=== PATIENT | male | born 1960 | race African-American/Black ===

== ENCOUNTER 2017-08-18 11:46 | Inpatient (IN) | payer OTHER ==
[2017-08-18 12:09] VITALS: BMI 34.7
--- NOTE | 2017-08-18 13:48 | HP ---
CIWA Score - CIWA Score Nausea/Vomitin-Mild Nausea/No Vomiting Muscle Tremors: 4-Moderate,w/Arms Extend Anxiety: 4-Mod. Anxious/Guarded Agitation: 4-Moderately Restless Paroxysmal Sweats: 1-Minimal Palms Moist Orientation: 1-Uncertain about Date Tacttile Disturbances: 1-Very Mild Itch/Numbness Auditory Disturbances: 0-None Visual Disturbances: 0-None Headache: 2-Mild CIWA-Ar Total Score: 18 Admission ROS S - HPI Chief Complaint: withdrawal sx Allergies/Adverse Reactions: Allergies Allergy/AdvReac Type Severity Reaction Status Date / Time No Known Allergies Allergy Verified 12/09/14 17:36 History of Present Illness: 57 years old male with long history of alcohol nicotine dependence has positive ppd ANXIETY IS ADMITTED TO DETOX Exam Limitations: No Limitations - Ebola screening Have you traveled outside of the country in the last 21 days: No Have you had contact with anyone from an Ebola affected area: No Have you been sick,other than usual withdrawal symptoms: No Do you have a fever: No - Review of Systems Constitutional: Changes in sleep, Weight Stable EENT: reports: Blurred Vision (EYE GLASSES), Hearing Loss (LEFT EAR SINCE ) Respiratory: reports: No Symptoms reported Cardiac: reports: No Symptoms Reported GI: reports: Diarrhea, Nausea, Poor Fluid Intake, Indigestion, Abdominal cramping : reports: No Symptoms Reported Musculoskeletal: reports: Joint Pain (LEFT KNEE 2017) Integumentary: reports: No Symptoms Reported Neuro: reports: Tremors Endocrine: reports: No Symptoms Reported Hematology: reports: No Symptoms Reported Psychiatric: reports: Judgement Intact, Anxious Other Systems: Reviewed and Negative Patient History - Patient Medical History Hx Anemia: No Hx Asthma: No Hx Chronic Obstructive Pulmonary Disease (COPD): No Hx Cancer: No Hx Cardiac Disorders: No Hx Congestive Heart Failure: No Hx Hypertension: No Hx Hypercholesterolemia: No Hx Pacemaker: No HX Cerebrovascular Accident: No Hx Seizures: No Hx Dementia: No Hx Diabetes: No Hx Gastrointestinal Disorders: Yes (acid reflux) Hx Liver Disease: No Hx Genitourinary Disorders: No Hx Sexually Transmitted Disorders: No Hx Renal Disease (ESRD): No Hx Thyroid Disease: No Hx Human Immunodeficiency Virus (HIV): No (NEGATIVE HX) Hx Hepatitis C: No Hx Depression: Yes Hx Suicide Attempt: No Hx Bipolar Disorder: No Hx Schizophrenia: No - Patient Surgical History Past Surgical History: Yes Hx Neurologic Surgery: No Hx Cataract Extraction: No Hx Cardiac Surgery: No Hx Lung Surgery: No Hx Breast Surgery: No Hx Breast Biopsy: No Hx Abdominal Surgery: Yes (RIGHT INGUINAL HERNIA REPAIR AT 24 YRS OLD) Hx Appendectomy: No Hx Cholecystectomy: Yes ([facility] Hx Genitourinary Surgery: No Hx Orthopedic Surgery: No Other Surgical History: MASTOIDECTOMY LEFT AT AGE 11,AND 34 WITH 50% HEARING LOSS Anesthesia Reaction: No - PPD History Previous Implant?: Yes Documented Results: Positive w/o proof Implanted On Prior [facility] Admission?: No PPD to be Administered?: No - Smoking Cessation Smoking history: Current every day smoker Have you smoked in the past 12 months: Yes Aproximately how many cigarettes per day: 10 Cigars Per Day: 0 Hx Chewing Tobacco Use: No Initiated information on smoking cessation: Yes 'Breaking Loose' booklet given: 08/18/17 - Substance & Tx. History Hx Alcohol Use: Yes Hx Substance Use: Yes Substance Use Type: Alcohol, Cocaine Hx Substance Use Treatment: Yes (2012) - Substances Abused Alcohol Route: Oral Frequency: Daily Amount used: vodka pint Age of first use: 19 Date of Last Use: 08/17/17 Cocaine Route: Smoking Frequency: Daily Amount used: 30$ Age of first use: 19 Date of Last Use: 08/18/17 Family Disease History - Family Disease History Family Disease History: Heart Disease: Father (DC-), Respiratory: Mother (ASTHMA/), Other: Mother, Brother (NO BROTHER) Admission Physical Exam [facility] - Vital Signs Vital Signs: Vital Signs - 24 hr 08/18/17 12:03 Temperature 98.6 F Pulse Rate 86 Respiratory 18 Rate Blood Pressure 149/86 - Physical General Appearance: Yes: Appropriately Dressed, Moderate Distress, Tremorous, Irritable, Sweating, Anxious HEENTM: Yes: Hearing grossly Normal, Normal ENT Inspection, Normocephalic, Normal Voice Respiratory: Yes: Chest Non-Tender, Lungs Clear, Normal Breath Sounds, No Respiratory Distress, No Accessory Muscle Use Neck: Yes: Supple, Trachea in good position Breast: Yes: Breasts Symetrical Cardiology: Yes: Regular Rhythm, Regular Rate, S1, S2 Abdominal: Yes: Non Tender, Soft, Increased Bowel Sounds Genitourinary: Yes: Within Normal Limits Back: Yes: Normal Inspection Musculoskeletal: Yes: full range of Motion, Gait Steady, Muscle Pain (LEFT KNEE) Extremities: Yes: Non-Tender, Tremors, Swelling (LEFT KNEE = CHRONIC) Neurological: Yes: Alert, Motor Strength 5/5 (CANE), Normal Response, Depressed Affect Integumentary: Yes: Warm Lymphatic: Yes: Within Normal Limits - Diagnostic (1) Alcohol dependence with uncomplicated withdrawal Current Visit: Yes Status: Acute (2) GERD (gastroesophageal reflux disease) Current Visit: Yes Status: Chronic Qualifiers: Esophagitis presence: without esophagitis Qualified Code(s): K21.9 - Gastro -esophageal reflux disease without esophagitis (3) HEARING LOSS LEFT EAR S/P MASTOIDECTOMY Current Visit: Yes Status: Chronic (4) Nicotine dependence Current Visit: Yes Status: Acute Cleared for Admission S - Detox or Rehab [facility] Level of Care: Medically Managed Detox Regimen/Protocol: Librium S Breath Alcohol Content Breath Alcohol Content: 0 Urine Drug Screen - Results Drug Screen Negative: No Urine Drug Screen Results: AIME-Cocaine
[2017-08-18] MEDS ORDERED: NICOTINE POLACRILEX 2 MG GUM BC PRN (14:00)
[2017-08-18] MEDS ORDERED: P-EPHED 60MG/TRIPROLIDI 2.5MG TABLET PO PRN (14:00)
[2017-08-18] MEDS ORDERED: guaiFENesin/D-METHORPHAN HB 10 ML UNIT-DOSE CUPS PO PRN (14:00)
[2017-08-18] MEDS ORDERED: MAGNESIUM CITRATE 300 ML BOTTLE PO PRN (14:00)
[2017-08-18] MEDS ORDERED: MAG HYDROX/AL HYDROX/SIMETH 30 ML UNIT-DOSE CUP PO PRN (14:00)
[2017-08-18] MEDS ORDERED: chlordiazePOXIDE HCL 25 MG CAPSULE PO PRN (14:00)
[2017-08-18] MEDS ORDERED: LOPERAMIDE HCL 2 MG CAPSULE PO PRN (14:00)
[2017-08-18] MEDS ORDERED: MAGNESIUM HYDROX 2400MG/30ML ORAL SUSPENSION 30 ML CUP PO PRN (14:00)
[2017-08-18] MEDS: chlordiazePOXIDE HCL 25 MG CAPSULE PO SCH ×2 (18:39→22:11)
[2017-08-18] MEDS: RANITIDINE HCL 150 MG TABLET (FP) PO SCH (22:11)
[2017-08-18] MEDS: THIAMINE HCL 100 MG TABLET (FP) PO SCH (22:11)
[2017-08-18 23:08] LABS: URINE APPEARANCE CLEAR; URINE BILIRUBIN NEGATIVE (NEGATIVE); URINE BLOOD NEGATIVE (NEGATIVE); URINE COLOR YELLOW; URINE GLUCOSE (UA) NEGATIVE (NEGATIVE); URINE KETONE NEGATIVE (NEGATIVE); URINE LEUK ESTERASE NEGATIVE (NEGATIVE); URINE NITRITE NEGATIVE (NEGATIVE); URINE PROTEIN NEGATIVE (NEGATIVE)
[2017-08-19] MEDS: chlordiazePOXIDE HCL 25 MG CAPSULE PO SCH ×4 (06:19→22:36)
[2017-08-19 09:57] LABS: HEMOGLOBIN 14.6 GM/dL (11.7-16.9); MCHC 31.7 g/dl (32.0-35.9); MEAN CELL VOLUME 94.4 fl (80-96); PLATELET COUNT 252 K/MM3 (134-434); RBC 4.87 M/mm3 (4.00-5.60); RDW 13.7 % (11.9-15.9); WHITE BLOOD COUNT 13.5 K/mm3 (4.0-10.0)
[2017-08-19] MEDS: PRENATAL VITAMINS W/ FOLIC ACID TABLET (FP) PO SCH (10:15)
[2017-08-19] MEDS: RANITIDINE HCL 150 MG TABLET (FP) PO SCH ×2 (10:15→22:36)
[2017-08-19] MEDS: NICOTINE 14 MG/24 HOURS TOPICAL PATCH TD SCH (10:15)
[2017-08-19 10:30] LABS: CHLORIDE 107 mmol/L (98-107); POTASSIUM 4.1 mmol/L (3.5-5.1); SGOT/AST 15 U/L (15-37); SODIUM 143 mmol/L (136-145)
[2017-08-19 10:44] LABS: ALBUMIN 3.9 g/dl (3.4-5.0); ALK PHOS 118 U/L (45-117); ANION GAP 7 (8-16); BILIRUBIN,TOTAL 0.4 mg/dL (0.2-1.0); BLOOD UREA NITROGEN 25 mg/dL (7-18); CALCIUM 8.8 mg/dL (8.5-10.1); CO2 29 mmol/L (21-32); CREATININE 1.1 mg/dL (0.7-1.3); GLUCOSE,RANDOM 113 mg/dL (74-106); SGPT/ALT 28 U/L (12-78); TOT PROT 7.4 g/dl (6.4-8.2)
[2017-08-19] MEDS ORDERED: SIMETHICONE 80 MG TAB.CHEW (FP) PO PRN (11:51)
--- NOTE | 2017-08-19 11:58 | PN ---
S CIWA - CIWA Score Nausea/Vomitin Muscle Tremors: 2 Anxiety: 4-Mod. Anxious/Guarded Agitation: 2 Paroxysmal Sweats: 3 Orientation: 2-Disoriented Date<2 days Tacttile Disturbances: 2-Mild Itch/Numbness/Burn Auditory Disturbances: 0-None Visual Disturbances: 0-None Headache: 0-None Present CIWA-Ar Total Score: 18 [facility] Progress Note (SOAP) Subjective: Stomach Cramping, Sweating, Nausea, Anxious. Objective: PT. A & O X 2 (UNCERTAIN ABOUT CURRENT DAY/ DATE). PT. OBSERVED AMBULATING ON UNIT. NO ACUTE DISTRESS. PT. DENIES CHEST PAIN, SOB, AND DIZZINESS. 08/19/17 11:55 Vital Signs Temperature 96.5 F L 08/19/17 09:54 Pulse Rate 78 08/19/17 09:54 Respiratory Rate 20 08/19/17 09:54 Blood Pressure 145/80 08/19/17 09:54 O2 Sat by Pulse Oximetry (%) Laboratory Tests 08/18/17 08/19/17 08/19/17 22:50 05:45 05:45 WBC 13.5 H D RBC 4.87 Hgb 14.6 Hct 46.0 MCV 94.4 MCH 30.0 MCHC 31.7 L RDW 13.7 Plt Count 252 D MPV 10.0 Sodium 143 Potassium 4.1 Chloride 107 Carbon Dioxide 29 D Anion Gap 7 L BUN 25 H D Creatinine 1.1 Creat Clearance w eGFR > 60 Random Glucose 113 H Calcium 8.8 Total Bilirubin 0.4 D AST 15 ALT 28 Alkaline Phosphatase 118 H D Total Protein 7.4 Albumin 3.9 Urine Color Yellow Urine Appearance Clear Urine pH 5.0 Ur Specific [place] 1.025 Urine Protein Negative Urine Glucose (UA) Negative Urine Ketones Negative Urine Blood Negative Urine Nitrite Negative Urine Bilirubin Negative Urine Urobilinogen 2.0 Ur Leukocyte Esterase Negative LABS NOTED. PATIENT DENIES ANY HISTORY OF KNOWN CARDIAC DISEASE INCLUDING ECG ABNORMALITY. RPR RESULT PENDING. 08/19/17 11:56 Assessment: 08/19/17 11:56 WITHDRAWAL SYMPTOMS. Plan: CONTINUE DETOX.
--- NOTE | 2017-08-19 12:55 | CONSULT ---
[facility] Psychiatric Consult - Data Date of interview: 08/19/17 Admission source: [facility] Identifying data: Taken to office for the psychiatric interview.Patient,politely ,declines to be evaluated." I told them that I do not have any issue to discuss with psychiatrists.Thank you." Mr Whalen left for his room.
[2017-08-19] MEDS: METHYL SALICYLATE/MENTHOL OINT 30 GM TUBE TP SCH ×2 (12:59→22:37)
--- NOTE | 2017-08-19 13:55 | EKG ---
Test Reason : Blood Pressure : / mmHG Vent. Rate : 087 BPM Atrial Rate : 087 BPM P-R Int : 168 ms QRS Dur : 092 ms QT Int : 400 ms P-R-T Axes : 065 055 055 degrees QTc Int : 481 ms NORMAL SINUS RHYTHM PROLONGED QT ABNORMAL ECG WHEN COMPARED WITH ECG OF 18-AUG-2017 18:53, NO SIGNIFICANT CHANGE WAS FOUND Confirmed by MD Anju, Paul ([id number]) on 08/19/2017 1:55:00 PM Referred By: Confirmed By:Paul Rene MD
--- NOTE | 2017-08-19 13:59 | EKG ---
Test Reason : Blood Pressure : / mmHG Vent. Rate : 084 BPM Atrial Rate : 084 BPM P-R Int : 168 ms QRS Dur : 096 ms QT Int : 414 ms P-R-T Axes : 070 062 059 degrees QTc Int : 489 ms NORMAL SINUS RHYTHM INCOMPLETE RIGHT BUNDLE BRANCH BLOCK PROLONGED QT ABNORMAL ECG NO PREVIOUS ECGS AVAILABLE Confirmed by MD Rene Edward ([id number]) on 08/19/2017 1:58:48 PM Referred By: Confirmed By:Paul Rene MD
[2017-08-19] MEDS: ACETAMINOPHEN 325 MG TABLET (FP) PO PRN (17:16)
[2017-08-19] MEDS: THIAMINE HCL 100 MG TABLET (FP) PO SCH (22:36)
[2017-08-20] MEDS: chlordiazePOXIDE HCL 25 MG CAPSULE PO SCH ×2 (05:10→10:25)
[2017-08-20] MEDS: MENTHOL/PHENOL 1 EACH UD MM PRN ×2 (05:11→10:28)
[2017-08-20] MEDS ORDERED: ARTIFICIAL TEARS (POLYVINYL ALCOHOL 1.4%) OPTH DROPS OU PRN (10:00)
[2017-08-20] MEDS: PRENATAL VITAMINS W/ FOLIC ACID TABLET (FP) PO SCH (10:26)
[2017-08-20] MEDS: NICOTINE 14 MG/24 HOURS TOPICAL PATCH TD SCH (10:26)
[2017-08-20] MEDS: METHYL SALICYLATE/MENTHOL OINT 30 GM TUBE TP SCH ×2 (10:26→22:42)
[2017-08-20] MEDS: RANITIDINE HCL 150 MG TABLET (FP) PO SCH ×2 (10:27→22:59)
--- NOTE | 2017-08-20 11:32 | PN ---
[facility] CIWA - CIWA Score Nausea/Vomitin-No Nausea/No Vomiting Muscle Tremors: 3 Anxiety: 4-Mod. Anxious/Guarded Agitation: 3 Paroxysmal Sweats: 2 Orientation: 0-Oriented Tacttile Disturbances: 2-Mild Itch/Numbness/Burn Auditory Disturbances: 0-None Visual Disturbances: 2-Mild Sensitivity Headache: 0-None Present CIWA-Ar Total Score: 16 [facility] Progress Note (SOAP) Subjective: Stomach Cramping, Body Aches, Anxious. Objective: PT. A & O X 3, OBSERVED AMBULATING ON UNIT. NO ACUTE DISTRESS. 08/20/17 11:30 Vital Signs Temperature 95.9 F L 08/20/17 09:49 Pulse Rate 81 08/20/17 09:49 Respiratory Rate 18 08/20/17 09:49 Blood Pressure 148/83 08/20/17 09:49 O2 Sat by Pulse Oximetry (%) Laboratory Tests 08/18/17 08/19/17 08/19/17 22:50 05:45 05:45 WBC 13.5 H D RBC 4.87 Hgb 14.6 Hct 46.0 MCV 94.4 MCH 30.0 MCHC 31.7 L RDW 13.7 Plt Count 252 D MPV 10.0 Sodium 143 Potassium 4.1 Chloride 107 Carbon Dioxide 29 D Anion Gap 7 L BUN 25 H D Creatinine 1.1 Creat Clearance w eGFR > 60 Random Glucose 113 H Calcium 8.8 Total Bilirubin 0.4 D AST 15 ALT 28 Alkaline Phosphatase 118 H D Total Protein 7.4 Albumin 3.9 Urine Color Yellow Urine Appearance Clear Urine pH 5.0 Ur Specific [place] 1.025 Urine Protein Negative Urine Glucose (UA) Negative Urine Ketones Negative Urine Blood Negative Urine Nitrite Negative Urine Bilirubin Negative Urine Urobilinogen 2.0 Ur Leukocyte Esterase Negative RPR Titer 08/19/17 05:45 WBC RBC Hgb Hct MCV MCH MCHC RDW Plt Count MPV Sodium Potassium Chloride Carbon Dioxide Anion Gap BUN Creatinine Creat Clearance w eGFR Random Glucose Calcium Total Bilirubin AST ALT Alkaline Phosphatase Total Protein Albumin Urine Color Urine Appearance Urine pH Ur Specific [place] Urine Protein Urine Glucose (UA) Urine Ketones Urine Blood Urine Nitrite Urine Bilirubin Urine Urobilinogen Ur Leukocyte Esterase RPR Titer Nonreactive LABS NOTED. Assessment: 08/20/17 11:30 WITHDRAWAL SYMPTOMS. Plan: CONTINUE DETOX. AMLODIPINE, 5 MG PO DAILY (FIRST DOSE NOW) FOR ELEVATED BP.
[2017-08-20] MEDS: amLODIPine BESYLATE 5 MG TABLET (FP) PO SCH (13:31)
[2017-08-20] MEDS: chlordiazePOXIDE 5 MG CAPSULE PO SCH ×2 (17:20→22:43)
[2017-08-20] MEDS: THIAMINE HCL 100 MG TABLET (FP) PO SCH (22:43)
[2017-08-21] MEDS: chlordiazePOXIDE 5 MG CAPSULE PO SCH ×2 (05:10→11:48)
[2017-08-21] MEDS: MENTHOL/PHENOL 1 EACH UD MM PRN ×2 (05:12→17:23)
--- NOTE | 2017-08-21 11:39 | PN ---
[facility] Progress Note (SOAP) Subjective: Anxious, Body Aches. Objective: PT. A & O X 3, OBSERVED AMBULATING ON UNIT. NO ACUTE DISTRESS. PATIENT DENIES CHEST PAIN. 08/21/17 11:37 Vital Signs Temperature 97.3 F L 08/21/17 09:33 Pulse Rate 89 08/21/17 09:33 Respiratory Rate 18 08/21/17 09:33 Blood Pressure 161/94 08/21/17 09:33 O2 Sat by Pulse Oximetry (%) Laboratory Tests 08/18/17 08/19/17 08/19/17 22:50 05:45 05:45 WBC 13.5 H D RBC 4.87 Hgb 14.6 Hct 46.0 MCV 94.4 MCH 30.0 MCHC 31.7 L RDW 13.7 Plt Count 252 D MPV 10.0 Sodium 143 Potassium 4.1 Chloride 107 Carbon Dioxide 29 D Anion Gap 7 L BUN 25 H D Creatinine 1.1 Creat Clearance w eGFR > 60 Random Glucose 113 H Calcium 8.8 Total Bilirubin 0.4 D AST 15 ALT 28 Alkaline Phosphatase 118 H D Total Protein 7.4 Albumin 3.9 Urine Color Yellow Urine Appearance Clear Urine pH 5.0 Ur Specific [place] 1.025 Urine Protein Negative Urine Glucose (UA) Negative Urine Ketones Negative Urine Blood Negative Urine Nitrite Negative Urine Bilirubin Negative Urine Urobilinogen 2.0 Ur Leukocyte Esterase Negative RPR Titer 08/19/17 05:45 WBC RBC Hgb Hct MCV MCH MCHC RDW Plt Count MPV Sodium Potassium Chloride Carbon Dioxide Anion Gap BUN Creatinine Creat Clearance w eGFR Random Glucose Calcium Total Bilirubin AST ALT Alkaline Phosphatase Total Protein Albumin Urine Color Urine Appearance Urine pH Ur Specific [place] Urine Protein Urine Glucose (UA) Urine Ketones Urine Blood Urine Nitrite Urine Bilirubin Urine Urobilinogen Ur Leukocyte Esterase RPR Titer Nonreactive LABS NOTED. Assessment: 08/21/17 11:37 WITHDRAWAL SYMPTOMS. Plan: CONTINUE DETOX. AMLODIPINE, 5 MG PO (IN ADDITION TO REGULARLY SCHEDULED DAILY 5 MG PO) FOR PERSISTENTLY ELEVATED BP.
[2017-08-21] MEDS: PRENATAL VITAMINS W/ FOLIC ACID TABLET (FP) PO SCH (11:48)
[2017-08-21] MEDS: METHYL SALICYLATE/MENTHOL OINT 30 GM TUBE TP SCH ×2 (11:48→22:48)
[2017-08-21] MEDS: amLODIPine BESYLATE 5 MG TABLET (FP) PO SCH (11:48)
[2017-08-21] MEDS: RANITIDINE HCL 150 MG TABLET (FP) PO SCH ×2 (11:48→22:48)
[2017-08-21] MEDS: NICOTINE 14 MG/24 HOURS TOPICAL PATCH TD SCH (11:48)
[2017-08-21] MEDS ORDERED: amLODIPine BESYLATE 5 MG TABLET (FP) PO ONE (12:00)
[2017-08-21] MEDS: ACETAMINOPHEN 325 MG TABLET (FP) PO PRN (17:21)
[2017-08-21] MEDS: chlordiazePOXIDE HCL 10 MG CAPSULE PO SCH ×2 (17:24→23:50)
[2017-08-21] MEDS: THIAMINE HCL 100 MG TABLET (FP) PO SCH (22:48)
[2017-08-22] MEDS: ACETAMINOPHEN 325 MG TABLET (FP) PO PRN (02:25)
[2017-08-22] MEDS: chlordiazePOXIDE HCL 10 MG CAPSULE PO SCH ×2 (05:49→10:09)
[2017-08-22] MEDS: PRENATAL VITAMINS W/ FOLIC ACID TABLET (FP) PO SCH (10:05)
[2017-08-22] MEDS: amLODIPine BESYLATE 5 MG TABLET (FP) PO SCH (10:05)
[2017-08-22] MEDS: RANITIDINE HCL 150 MG TABLET (FP) PO SCH (10:05)
[2017-08-22] MEDS: METHYL SALICYLATE/MENTHOL OINT 30 GM TUBE TP SCH (10:06)
[2017-08-22] MEDS: NICOTINE 14 MG/24 HOURS TOPICAL PATCH TD SCH (10:06)
--- NOTE | 2017-08-22 12:05 | DS ---
[facility] Detox Discharge Summary Admission Date: 08/18/17 Discharge Date: 08/22/17 - History Present History: Alcohol Dependence Additional Comments: PATIENT GOING TO [facility] ([facility]) FOR AFTERCARE. PATIENT WAS DISCHARGED FROM DETOX UNIT IN STABLE MEDICAL CONDITION. Pertinent Past History: GERD, Nicotine Dependence, Hearing Loss of Left ear, Depression. - Physical Exam Results Vital Signs: Vital Signs Temperature 100.9 F H 08/22/17 06:33 Pulse Rate 78 08/22/17 06:33 Respiratory Rate 18 08/22/17 06:33 Blood Pressure 134/78 08/22/17 06:33 O2 Sat by Pulse Oximetry (%) Pertinent Admission Physical Exam Findings: WITHDRAWAL SYMPTOMS. Laboratory Tests 08/18/17 08/19/17 08/19/17 22:50 05:45 05:45 WBC 13.5 H D RBC 4.87 Hgb 14.6 Hct 46.0 MCV 94.4 MCH 30.0 MCHC 31.7 L RDW 13.7 Plt Count 252 D MPV 10.0 Sodium 143 Potassium 4.1 Chloride 107 Carbon Dioxide 29 D Anion Gap 7 L BUN 25 H D Creatinine 1.1 Creat Clearance w eGFR > 60 Random Glucose 113 H Calcium 8.8 Total Bilirubin 0.4 D AST 15 ALT 28 Alkaline Phosphatase 118 H D Total Protein 7.4 Albumin 3.9 Urine Color Yellow Urine Appearance Clear Urine pH 5.0 Ur Specific [place] 1.025 Urine Protein Negative Urine Glucose (UA) Negative Urine Ketones Negative Urine Blood Negative Urine Nitrite Negative Urine Bilirubin Negative Urine Urobilinogen 2.0 Ur Leukocyte Esterase Negative RPR Titer 08/19/17 05:45 WBC RBC Hgb Hct MCV MCH MCHC RDW Plt Count MPV Sodium Potassium Chloride Carbon Dioxide Anion Gap BUN Creatinine Creat Clearance w eGFR Random Glucose Calcium Total Bilirubin AST ALT Alkaline Phosphatase Total Protein Albumin Urine Color Urine Appearance Urine pH Ur Specific [place] Urine Protein Urine Glucose (UA) Urine Ketones Urine Blood Urine Nitrite Urine Bilirubin Urine Urobilinogen Ur Leukocyte Esterase RPR Titer Nonreactive LABS NOTED. - Treatment Hospital Course: Detox Protocol Followed, Detoxed Safely, Responded well, Discharged Condition Good, Rehab Referral Accepted Patient has Accepted a Rehab Referral to: [facility] ([facility]). - Medication Discharge Medications: Ambulatory Orders Hypromellose 0.5% Opth Soln [Artificial Tears] 2 drop OU QID PRN #0 drops Amlodipine Besylate [Norvasc -] 5 mg PO DAILY 30 Days #30 tablet 08/22/17 - Diagnosis (1) Alcohol dependence with uncomplicated withdrawal Current Visit: Yes Status: Acute (2) Nicotine dependence Current Visit: Yes Status: Acute (3) GERD (gastroesophageal reflux disease) Current Visit: Yes Status: Chronic Qualifiers: Esophagitis presence: without esophagitis Qualified Code(s): K21.9 - Gastro -esophageal reflux disease without esophagitis (4) HEARING LOSS LEFT EAR S/P MASTOIDECTOMY Current Visit: Yes Status: Chronic - AMA Did Patient Leave Against Medical Advice: No
[2017-08-22 17:25] VITALS: BP 129/79; PULSE 83; TEMP 97.1
== END 2017-08-22 17:45 | disposition home or self-care (01) | DRG 774 ==
LOC: YASAS 11:46 → Y3N 17:14
PROVIDERS: ADMIT Internal Medicine; ATTEND Internal Medicine
PROC: HZ2ZZZZ Detoxification Services for Substance Abuse Treatment (ICD-10-PCS; principal; 2017-08-18)
DX: F10.230 Alcohol dependence with withdrawal, uncomplicated (principal); F14.20 Cocaine dependence, uncomplicated; F17.210 Nicotine dependence, cigarettes, uncomplicated; K21.9 Gastro-esophageal reflux disease without esophagitis; H91.8X2 Other specified hearing loss, left ear; Z59.0 Homelessness
CPT/HCPCS: 36415; 71046-TC-FY; 80053; 81003; 85027; 86593; 93005; 93010

== ENCOUNTER 2018-04-17 16:16 | Inpatient (IN) | payer OTHER ==
[2018-04-17 18:37] VITALS: BMI 37.3
--- NOTE | 2018-04-17 20:23 | HP ---
CIWA Score - CIWA Score Nausea/Vomitin Muscle Tremors: 3 Anxiety: 2 Agitation: 3 Paroxysmal Sweats: No Perspiration Orientation: 0-Oriented Tacttile Disturbances: 0-None Auditory Disturbances: 0-None Visual Disturbances: 0-None Headache: 3-Moderate CIWA-Ar Total Score: 14 Admission ROS S - HPI Chief Complaint: Alcohol withdrawal symptoms Allergies/Adverse Reactions: Allergies Allergy/AdvReac Type Severity Reaction Status Date / Time No Known Allergies Allergy Verified 08/18/17 16:43 History of Present Illness: 57 years old female with 37 years old history of alcohol dependence is seeking admission to detox from alcohol. Patient has been in previous detox last at [facility] and reports a year of sobriety. Patient has a medical left ear deafness, acid reflux, right knee tendonitis, depression and hypertension. He denies suicide attempt and suicidal ideation at this time. Exam Limitations: No Limitations - Ebola screening Have you traveled outside of the country in the last 21 days: No Have you had contact with anyone from an Ebola affected area: No Have you been sick,other than usual withdrawal symptoms: No Do you have a fever: No - Review of Systems Constitutional: Loss of Appetite, Weakness EENT: reports: Hearing Loss (left ear), Other (wears prescription glasses) Respiratory: reports: No Symptoms reported Cardiac: reports: No Symptoms Reported GI: reports: Poor Appetite, Poor Fluid Intake, Vomiting, Abdominal cramping : reports: No Symptoms Reported Musculoskeletal: reports: Joint Pain, Joint Swelling (knee) Integumentary: reports: Dryness Neuro: reports: Headache, Tremors Endocrine: reports: No Symptoms Reported Hematology: reports: No Symptoms Reported Psychiatric: reports: Mood/Affect Appropiate, Orientated x3 Other Systems: Reviewed and Negative Patient History - Patient Medical History Hx Anemia: No Hx Asthma: No Hx Chronic Obstructive Pulmonary Disease (COPD): No Hx Cancer: No Hx Cardiac Disorders: No Hx Congestive Heart Failure: No Hx Hypertension: Yes (Not on medication) Hx Hypercholesterolemia: No Hx Pacemaker: No HX Cerebrovascular Accident: No Hx Seizures: No Hx Dementia: No Hx Diabetes: No Hx Gastrointestinal Disorders: Yes (Acid reflux - Not on medication) Hx Liver Disease: No Hx Genitourinary Disorders: No Hx Sexually Transmitted Disorders: No Hx Renal Disease (ESRD): No Hx Thyroid Disease: No Hx Human Immunodeficiency Virus (HIV): No (NEGATIVE 2017) Hx Hepatitis C: No Hx Depression: Yes (Not on medication) Hx Suicide Attempt: No Hx Bipolar Disorder: No Hx Schizophrenia: Yes (Not on medication) Other Medical History: Right knee tendonitis - Not on Medication - Patient Surgical History Past Surgical History: Yes Hx Neurologic Surgery: No Hx Cataract Extraction: No Hx Cardiac Surgery: No Hx Lung Surgery: No Hx Breast Surgery: No Hx Breast Biopsy: No Hx Abdominal Surgery: Yes (RIGHT INGUINAL HERNIA REPAIR AT 24 YRS OLD) Hx Appendectomy: No Hx Cholecystectomy: Yes (LAP CHOLECYSTECTOMY IN 2000 IN [facility]) Hx Genitourinary Surgery: No Hx Section: No Hx Orthopedic Surgery: No Other Surgical History: MASTOIDECTOMY LEFT AT AGE 11,AND 34 WITH 50% HEARING LOSS Anesthesia Reaction: No - PPD History Previous Implant?: No (PPD POSITIVE 1999. INH FOR 6 MONTHS) PPD to be Administered?: No - Reproductive History Patient is a Female of Child Bearing Age (11 -55 yrs old): No (MALE) - Smoking Cessation Smoking history: Current every day smoker Have you smoked in the past 12 months: Yes Aproximately how many cigarettes per day: 10 Cigars Per Day: 0 Hx Chewing Tobacco Use: No Initiated information on smoking cessation: Yes 'Breaking Loose' booklet given: 04/17/18 Family Disease History - Family Disease History Family Disease History: Heart Disease: Father (NC-), Respiratory: Mother (ASTHMA/), Other: Mother, Brother (NO BROTHER) Admission Physical Exam [facility] - Vital Signs Vital Signs: Vital Signs - 24 hr 04/17/18 18:35 Temperature 97.3 F L Pulse Rate 83 Respiratory 21 H Rate Blood Pressure 153/90 - Physical General Appearance: Yes: Moderate Distress, Irritable, Anxious HEENTM: Yes: EOMI, Normal ENT Inspection, Normocephalic, CECE Respiratory: Yes: Lungs Clear, Normal Breath Sounds, No Respiratory Distress Neck: Yes: Supple Breast: Yes: Breast Exam Deferred Cardiology: Yes: Regular Rhythm, Regular Rate Abdominal: Yes: Normal Bowel Sounds Genitourinary: Yes: Polyuria (DENIES HISTORY OF DM OR PROSTATE PROBLEM) Back: Yes: Normal Inspection Musculoskeletal: Yes: Joint Stiffness (RIGHT KNEE), Muscle Pain Extremities: Yes: Tremors Neurological: Yes: charge operator II-XII NML intact, Alert, Normal Mood/Affect Integumentary: Yes: Warm Lymphatic: Yes: Within Normal Limits - Diagnostic (1) Depression Current Visit: Yes Status: Chronic Qualifiers: Depression Type: unspecified Qualified Code(s): F32.9 - Major depressive disorder, single episode, unspecified (2) Alcohol dependence with uncomplicated withdrawal Current Visit: Yes Status: Chronic (3) Nicotine dependence Current Visit: Yes Status: Chronic (4) Cocaine dependence Current Visit: Yes Status: Chronic (5) Essential hypertension Current Visit: Yes Status: Chronic (6) GERD (gastroesophageal reflux disease) Current Visit: Yes Status: Chronic Qualifiers: Esophagitis presence: without esophagitis Qualified Code(s): K21.9 - Gastro -esophageal reflux disease without esophagitis (7) HEARING LOSS LEFT EAR S/P MASTOIDECTOMY Current Visit: Yes Status: Chronic Cleared for Admission S - Detox or Rehab [facility] Level of Care: Medically Managed Detox Regimen/Protocol: Librium S Breath Alcohol Content Breath Alcohol Content: 0 Urine Drug Screen - Results Drug Screen Negative: No Urine Drug Screen Results: AIME-Cocaine
[2018-04-17] MEDS ORDERED: MAGNESIUM CITRATE 300 ML BOTTLE PO PRN (20:40)
[2018-04-17] MEDS ORDERED: LOPERAMIDE HCL 2 MG CAPSULE PO PRN (20:40)
[2018-04-17] MEDS ORDERED: P-EPHED 60MG/TRIPROLIDI 2.5MG TABLET PO PRN (20:40)
[2018-04-17] MEDS ORDERED: IBUPROFEN 400 MG TABLET (FP) PO PRN (20:40)
[2018-04-17] MEDS ORDERED: ACETAMINOPHEN 325 MG TABLET (FP) PO PRN (20:40)
[2018-04-17] MEDS ORDERED: MENTHOL/PHENOL 1 EACH UD MM PRN (20:40)
[2018-04-17] MEDS ORDERED: MAGNESIUM HYDROX 2400MG/30ML ORAL SUSPENSION 30 ML CUP PO PRN (20:40)
[2018-04-17] MEDS ORDERED: NICOTINE POLACRILEX 2 MG GUM BC PRN (20:40)
[2018-04-17] MEDS ORDERED: MAG HYDROX/AL HYDROX/SIMETH 30 ML UNIT-DOSE CUP PO PRN (20:40)
[2018-04-17] MEDS ORDERED: chlordiazePOXIDE HCL 25 MG CAPSULE PO PRN (20:40)
[2018-04-17] MEDS: THIAMINE HCL 100 MG TABLET (FP) PO SCH (23:10)
[2018-04-17] MEDS: chlordiazePOXIDE HCL 25 MG CAPSULE PO SCH (23:10)
[2018-04-18 02:06] LABS: URINE APPEARANCE CLEAR; URINE BILIRUBIN NEGATIVE (<2.0 mg/dL); URINE COLOR YELLOW; URINE GLUCOSE (UA) NEGATIVE (NEGATIVE); URINE KETONE NEGATIVE (NEGATIVE); URINE LEUK ESTERASE NEGATIVE (NEGATIVE); URINE NITRITE NEGATIVE (NEGATIVE); URINE PROTEIN NEGATIVE (NEGATIVE); URINE UROBILINOGEN NEGATIVE mg/dL (0.2-1.0)
[2018-04-18] MEDS: chlordiazePOXIDE HCL 25 MG CAPSULE PO SCH ×4 (06:12→22:39)
[2018-04-18] MEDS: PRENATAL VITAMINS W/ FOLIC ACID TABLET (FP) PO SCH (10:15)
[2018-04-18] MEDS: amLODIPine BESYLATE 5 MG TABLET (FP) PO SCH (10:15)
[2018-04-18] MEDS: NICOTINE 14 MG/24 HOURS TOPICAL PATCH TD SCH (10:16)
[2018-04-18] MEDS: guaiFENesin/D-METHORPHAN HB 10 ML UNIT-DOSE CUPS PO PRN ×2 (10:16→17:54)
--- NOTE | 2018-04-18 10:33 | EKG ---
Test Reason : Blood Pressure : / mmHG Vent. Rate : 081 BPM Atrial Rate : 081 BPM P-R Int : 170 ms QRS Dur : 092 ms QT Int : 412 ms P-R-T Axes : 070 052 052 degrees QTc Int : 478 ms NORMAL SINUS RHYTHM NORMAL ECG WHEN COMPARED WITH ECG OF 19-AUG-2017 09:31, NO SIGNIFICANT CHANGE WAS FOUND Confirmed by RO HEDRICK MD ([id number]) on 04/18/2018 10:33:31 AM Referred By: Confirmed By:RO HEDRICK MD
--- NOTE | 2018-04-18 10:38 | CONSULT ---
[facility] Psychiatric Consult - Data Date of interview: 04/18/18 Admission source: [facility] Identifying data: Patient is approached at bedside for psychiatric interview. Mr Whalen refused. Nursing staff is made aware.
[2018-04-18 11:12] LABS: HEMOGLOBIN 13.8 GM/dL (11.7-16.9); MCH 30.6 pg (25.7-33.7); MCHC 32.8 g/dl (32.0-35.9); MEAN CELL VOLUME 93.3 fl (80-96); MEAN PLT VOLUME 9.5 fl (7.5-11.1); PLATELET COUNT 185 K/MM3 (134-434); RDW 13.7 % (11.9-15.9); WHITE BLOOD COUNT 9.1 K/mm3 (4.0-10.0)
[2018-04-18 11:21] LABS: ALBUMIN 3.1 g/dl (3.4-5.0); ALK PHOS 74 U/L (45-117); ANION GAP 8 MMOL/L (8-16); BILIRUBIN,TOTAL 0.4 mg/dL (0.2-1); BLOOD UREA NITROGEN 19 mg/dL (7-18); CALCIUM 8.2 mg/dL (8.5-10.1); CHLORIDE 109 mmol/L (98-107); CO2 27 mmol/L (21-32); CREATININE 0.8 mg/dL (0.55-1.3); GLUCOSE,RANDOM 85 mg/dL (74-106); POTASSIUM 4.4 mmol/L (3.5-5.1); SGOT/AST 10 U/L (15-37); SGPT/ALT 22 U/L (13-61); SODIUM 144 mmol/L (136-145); TOT PROT 6.1 g/dl (6.4-8.2)
[2018-04-18] MEDS: ARTIFICIAL TEARS (POLYVINYL ALCOHOL) OPTH DROPS OU SCH ×2 (15:36→22:39)
--- NOTE | 2018-04-18 15:47 | PN ---
S CIWA - CIWA Score Nausea/Vomitin Muscle Tremors: 2 Anxiety: 2 Agitation: 2 Paroxysmal Sweats: 1-Minimal Palms Moist Orientation: 0-Oriented Tacttile Disturbances: 1-Very Mild Itch/Numbness Auditory Disturbances: 1-Very Mild Visual Disturbances: 1-Very Mild Sensitivity Headache: 2-Mild CIWA-Ar Total Score: 14 S Progress Note (SOAP) Subjective: alert,irritable,anxious,interrupted sleep,tremor Objective: 04/18/18 15:45 Vital Signs Temperature 97.6 F 04/18/18 15:20 Pulse Rate 82 04/18/18 15:20 Respiratory Rate 18 04/18/18 15:20 Blood Pressure 140/72 04/18/18 15:20 O2 Sat by Pulse Oximetry (%) ekg nsr,normal ecg,qt/qtc 412/478 Laboratory Last Values WBC 9.1 K/mm3 (4.0-10.0) 04/18/18 08:00 RBC 4.50 M/mm3 (4.00-5.60) 04/18/18 08:00 Hgb 13.8 GM/dL (11.7-16.9) 04/18/18 08:00 Hct 42.0 % (35.4-49) 04/18/18 08:00 MCV 93.3 fl (80-96) 04/18/18 08:00 MCH 30.6 pg (25.7-33.7) 04/18/18 08:00 MCHC 32.8 g/dl (32.0-35.9) 04/18/18 08:00 RDW 13.7 % (11.9-15.9) 04/18/18 08:00 Plt Count 185 K/MM3 (134-434) D 04/18/18 08:00 MPV 9.5 fl (7.5-11.1) 04/18/18 08:00 Sodium 144 mmol/L (136-145) 04/18/18 08:00 Potassium 4.4 mmol/L (3.5-5.1) 04/18/18 08:00 Chloride 109 mmol/L (98-107) H 04/18/18 08:00 Carbon Dioxide 27 mmol/L (21-32) 04/18/18 08:00 Anion Gap 8 MMOL/L (8-16) 04/18/18 08:00 BUN 19 mg/dL (7-18) H 04/18/18 08:00 Creatinine 0.8 mg/dL (0.55-1.3) 04/18/18 08:00 Creat Clearance w eGFR > 60 (>60) 04/18/18 08:00 Random Glucose 85 mg/dL (74-106) 04/18/18 08:00 Calcium 8.2 mg/dL (8.5-10.1) L 04/18/18 08:00 Total Bilirubin 0.4 mg/dL (0.2-1) 04/18/18 08:00 AST 10 U/L (15-37) L 04/18/18 08:00 ALT 22 U/L (13-61) 04/18/18 08:00 Alkaline Phosphatase 74 U/L (45-117) 04/18/18 08:00 Total Protein 6.1 g/dl (6.4-8.2) L 04/18/18 08:00 Albumin 3.1 g/dl (3.4-5.0) L 04/18/18 08:00 Urine Color Yellow 04/17/18 23:51 Urine Appearance Clear 04/17/18 23:51 Urine pH 5.0 (5.0-8.0) 04/17/18 23:51 Ur Specific [place] 1.027 (1.010-1.035) 04/17/18 23:51 Urine Protein Negative (NEGATIVE) 04/17/18 23:51 Urine Glucose (UA) Negative (NEGATIVE) 04/17/18 23:51 Urine Ketones Negative (NEGATIVE) 04/17/18 23:51 Urine Blood Negative (NEGATIVE) 04/17/18 23:51 Urine Nitrite Negative (NEGATIVE) 04/17/18 23:51 Urine Bilirubin Negative (<2.0 mg/dL) 04/17/18 23:51 Urine Urobilinogen Negative mg/dL (0.2-1.0) 04/17/18 23:51 Ur Leukocyte Esterase Negative (NEGATIVE) 04/17/18 23:51 RPR Titer Nonreactive (NONREACTIVE) 04/18/18 08:00 Assessment: 04/18/18 15:46 withdrawal symptom Plan: continue detox
[2018-04-18] MEDS: THIAMINE HCL 100 MG TABLET (FP) PO SCH (22:39)
[2018-04-18] MEDS: MELATONIN 5 MG TABLETS PO PRN (22:40)
[2018-04-19] MEDS: chlordiazePOXIDE HCL 25 MG CAPSULE PO SCH ×3 (06:25→17:42)
[2018-04-19] MEDS: ARTIFICIAL TEARS (POLYVINYL ALCOHOL) OPTH DROPS OU SCH ×3 (06:25→22:45)
[2018-04-19] MEDS: NICOTINE 14 MG/24 HOURS TOPICAL PATCH TD SCH (10:42)
[2018-04-19] MEDS: amLODIPine BESYLATE 5 MG TABLET (FP) PO SCH (10:42)
[2018-04-19] MEDS: PRENATAL VITAMINS W/ FOLIC ACID TABLET (FP) PO SCH (10:42)
[2018-04-19] MEDS: guaiFENesin/D-METHORPHAN HB 10 ML UNIT-DOSE CUPS PO PRN ×2 (10:43→17:43)
[2018-04-19] MEDS: SIMETHICONE 80 MG TAB.CHEW (FP) PO PRN (14:20)
--- NOTE | 2018-04-19 16:22 | PN ---
S CIWA - CIWA Score Nausea/Vomitin Muscle Tremors: 3 Anxiety: 3 Agitation: 3 Paroxysmal Sweats: 3 Orientation: 0-Oriented Tacttile Disturbances: 0-None Auditory Disturbances: 0-None Visual Disturbances: 0-None Headache: 1-Very Mild CIWA-Ar Total Score: 15 BHS Progress Note (SOAP) Subjective: Sweating, interrupted sleep Objective: 04/19/18 16:21 Last Vital Signs Temp Pulse Resp BP Pulse Ox 97.2 F L 87 20 133/76 04/19/18 14:12 04/19/18 14:12 04/19/18 14:12 04/19/18 14:12 Laboratory Tests 04/17/18 04/18/18 04/18/18 23:51 08:00 08:00 WBC 9.1 RBC 4.50 Hgb 13.8 Hct 42.0 MCV 93.3 MCH 30.6 MCHC 32.8 RDW 13.7 Plt Count 185 D MPV 9.5 Sodium 144 Potassium 4.4 Chloride 109 H Carbon Dioxide 27 Anion Gap 8 BUN 19 H Creatinine 0.8 Creat Clearance w eGFR > 60 Random Glucose 85 Calcium 8.2 L Total Bilirubin 0.4 AST 10 L ALT 22 Alkaline Phosphatase 74 Total Protein 6.1 L Albumin 3.1 L Urine Color Yellow Urine Appearance Clear Urine pH 5.0 Ur Specific [place] 1.027 Urine Protein Negative Urine Glucose (UA) Negative Urine Ketones Negative Urine Blood Negative Urine Nitrite Negative Urine Bilirubin Negative Urine Urobilinogen Negative Ur Leukocyte Esterase Negative RPR Titer 04/18/18 08:00 WBC RBC Hgb Hct MCV MCH MCHC RDW Plt Count MPV Sodium Potassium Chloride Carbon Dioxide Anion Gap BUN Creatinine Creat Clearance w eGFR Random Glucose Calcium Total Bilirubin AST ALT Alkaline Phosphatase Total Protein Albumin Urine Color Urine Appearance Urine pH Ur Specific [place] Urine Protein Urine Glucose (UA) Urine Ketones Urine Blood Urine Nitrite Urine Bilirubin Urine Urobilinogen Ur Leukocyte Esterase RPR Titer Nonreactive Labs reviewed Assessment: 04/19/18 16:21 Withdrawal sxs Plan: Continue detox Encouraged PO water intake
[2018-04-19] MEDS: CLOTRIMAZOLE 1% CREAM 15 GM TUBE TP SCH (22:45)
[2018-04-19] MEDS: THIAMINE HCL 100 MG TABLET (FP) PO SCH (22:45)
[2018-04-19] MEDS: chlordiazePOXIDE 5 MG CAPSULE PO SCH (22:46)
[2018-04-19] MEDS: MELATONIN 5 MG TABLETS PO PRN (22:46)
[2018-04-20] MEDS: chlordiazePOXIDE 5 MG CAPSULE PO SCH ×4 (06:14→17:51)
[2018-04-20] MEDS: ARTIFICIAL TEARS (POLYVINYL ALCOHOL) OPTH DROPS OU SCH ×3 (07:14→23:54)
[2018-04-20] MEDS: CLOTRIMAZOLE 1% CREAM 15 GM TUBE TP SCH ×2 (10:15→23:54)
[2018-04-20] MEDS: PRENATAL VITAMINS W/ FOLIC ACID TABLET (FP) PO SCH (10:15)
[2018-04-20] MEDS: NICOTINE 14 MG/24 HOURS TOPICAL PATCH TD SCH (10:15)
[2018-04-20] MEDS: amLODIPine BESYLATE 5 MG TABLET (FP) PO SCH (10:15)
[2018-04-20] MEDS: SIMETHICONE 80 MG TAB.CHEW (FP) PO PRN (10:16)
[2018-04-20] MEDS: guaiFENesin/D-METHORPHAN HB 10 ML UNIT-DOSE CUPS PO PRN ×3 (10:17→22:50)
--- NOTE | 2018-04-20 12:10 | PN ---
BHS Progress Note (SOAP) Subjective: Anxious Objective: 04/20/18 12:08 Last Vital Signs Temp Pulse Resp BP Pulse Ox 96.4 F L 84 18 136/81 04/20/18 09:09 04/20/18 09:09 04/20/18 09:09 04/20/18 09:09 Laboratory Tests 04/17/18 04/18/18 04/18/18 23:51 08:00 08:00 WBC 9.1 RBC 4.50 Hgb 13.8 Hct 42.0 MCV 93.3 MCH 30.6 MCHC 32.8 RDW 13.7 Plt Count 185 D MPV 9.5 Sodium 144 Potassium 4.4 Chloride 109 H Carbon Dioxide 27 Anion Gap 8 BUN 19 H Creatinine 0.8 Creat Clearance w eGFR > 60 Random Glucose 85 Calcium 8.2 L Total Bilirubin 0.4 AST 10 L ALT 22 Alkaline Phosphatase 74 Total Protein 6.1 L Albumin 3.1 L Urine Color Yellow Urine Appearance Clear Urine pH 5.0 Ur Specific [place] 1.027 Urine Protein Negative Urine Glucose (UA) Negative Urine Ketones Negative Urine Blood Negative Urine Nitrite Negative Urine Bilirubin Negative Urine Urobilinogen Negative Ur Leukocyte Esterase Negative RPR Titer 04/18/18 08:00 WBC RBC Hgb Hct MCV MCH MCHC RDW Plt Count MPV Sodium Potassium Chloride Carbon Dioxide Anion Gap BUN Creatinine Creat Clearance w eGFR Random Glucose Calcium Total Bilirubin AST ALT Alkaline Phosphatase Total Protein Albumin Urine Color Urine Appearance Urine pH Ur Specific [place] Urine Protein Urine Glucose (UA) Urine Ketones Urine Blood Urine Nitrite Urine Bilirubin Urine Urobilinogen Ur Leukocyte Esterase RPR Titer Nonreactive Labs reviewed Assessment: 04/20/18 12:09 Withdrawal sxs Plan: Continue detox Encouraged PO water intake
[2018-04-20] MEDS: MELATONIN 5 MG TABLETS PO PRN (22:50)
[2018-04-20] MEDS: THIAMINE HCL 100 MG TABLET (FP) PO SCH (22:50)
[2018-04-20] MEDS: chlordiazePOXIDE HCL 10 MG CAPSULE PO SCH (23:55)
[2018-04-21] MEDS: chlordiazePOXIDE HCL 10 MG CAPSULE PO SCH (05:14)
[2018-04-21] MEDS: ARTIFICIAL TEARS (POLYVINYL ALCOHOL) OPTH DROPS OU SCH (05:15)
[2018-04-21 06:33] VITALS: BP 133/81; PULSE 85; TEMP 97
--- NOTE | 2018-04-21 10:39 | DS ---
[facility] Detox Discharge Summary Admission Date: 04/17/18 Discharge Date: 04/21/18 - History Present History: Alcohol Dependence, Cocaine Dependence Pertinent Past History: GERD HTN Hearing loss left ear, chronic - Physical Exam Results Vital Signs: Vital Signs Temperature 97.0 F L 04/21/18 06:32 Pulse Rate 85 04/21/18 06:32 Respiratory Rate 18 04/21/18 06:32 Blood Pressure 133/81 04/21/18 06:32 O2 Sat by Pulse Oximetry (%) Pertinent Admission Physical Exam Findings: Withdrawal symptoms Laboratory Tests 04/17/18 04/18/18 04/18/18 23:51 08:00 08:00 WBC 9.1 RBC 4.50 Hgb 13.8 Hct 42.0 MCV 93.3 MCH 30.6 MCHC 32.8 RDW 13.7 Plt Count 185 D MPV 9.5 Sodium 144 Potassium 4.4 Chloride 109 H Carbon Dioxide 27 Anion Gap 8 BUN 19 H Creatinine 0.8 Creat Clearance w eGFR > 60 Random Glucose 85 Calcium 8.2 L Total Bilirubin 0.4 AST 10 L ALT 22 Alkaline Phosphatase 74 Total Protein 6.1 L Albumin 3.1 L Urine Color Yellow Urine Appearance Clear Urine pH 5.0 Ur Specific [place] 1.027 Urine Protein Negative Urine Glucose (UA) Negative Urine Ketones Negative Urine Blood Negative Urine Nitrite Negative Urine Bilirubin Negative Urine Urobilinogen Negative Ur Leukocyte Esterase Negative RPR Titer 04/18/18 08:00 WBC RBC Hgb Hct MCV MCH MCHC RDW Plt Count MPV Sodium Potassium Chloride Carbon Dioxide Anion Gap BUN Creatinine Creat Clearance w eGFR Random Glucose Calcium Total Bilirubin AST ALT Alkaline Phosphatase Total Protein Albumin Urine Color Urine Appearance Urine pH Ur Specific [place] Urine Protein Urine Glucose (UA) Urine Ketones Urine Blood Urine Nitrite Urine Bilirubin Urine Urobilinogen Ur Leukocyte Esterase RPR Titer Nonreactive Labs reviewed - Treatment Hospital Course: Detox Protocol Followed, Detoxed Safely, Responded well, Discharged Condition Good - Medication Discharge Medications: Ambulatory Orders Hypromellose 0.5% Opth Soln [Artificial Tears] 2 drop OU QID PRN #0 drops Amlodipine Besylate [Norvasc -] 5 mg PO DAILY 30 Days #30 tablet 08/22/17 - Diagnosis (1) Alcohol dependence with uncomplicated withdrawal Status: Acute (2) Cocaine dependence Status: Chronic (3) Essential hypertension Status: Chronic (4) GERD (gastroesophageal reflux disease) Status: Chronic Qualifiers: Esophagitis presence: without esophagitis Qualified Code(s): K21.9 - Gastro -esophageal reflux disease without esophagitis (5) HEARING LOSS LEFT EAR S/P MASTOIDECTOMY Status: Chronic (6) Nicotine dependence Status: Chronic (7) Tinea pedis Status: Chronic - AMA Did Patient Leave Against Medical Advice: No (F/U with your PCP within 1-2 weeks )
== END 2018-04-21 07:52 | disposition home or self-care (01) | DRG 774 ==
LOC: YASAS 16:16 → Y3N 20:45
PROC: HZ2ZZZZ Detoxification Services for Substance Abuse Treatment (ICD-10-PCS; principal; 2018-04-17)
DX: F10.230 Alcohol dependence with withdrawal, uncomplicated (principal); F14.20 Cocaine dependence, uncomplicated; F17.210 Nicotine dependence, cigarettes, uncomplicated; F32.9 Major depressive disorder, single episode, unspecified; I10 Essential (primary) hypertension; K21.9 Gastro-esophageal reflux disease without esophagitis; H91.92 Unspecified hearing loss, left ear; B35.3 Tinea pedis; Z59.0 Homelessness
CPT/HCPCS: 36415; 80053; 81003; 85027; 86593; 93005; 93010

== ENCOUNTER 2018-07-29 12:21 | Inpatient (IN) | payer OTHER ==
[2018-07-29 12:46] VITALS: BMI 36.6
--- NOTE | 2018-07-29 13:33 | HP ---
CIWA Score Nausea/Vomitin-No Nausea/No Vomiting Muscle Tremors: 4-Moderate,w/Arms Extend Anxiety: 3 Agitation: 3 Paroxysmal Sweats: 3 Orientation: 0-Oriented Tacttile Disturbances: 0-None Auditory Disturbances: 0-None Visual Disturbances: 0-None Headache: 1-Very Mild CIWA-Ar Total Score: 14 - Admission Criteria OASAS Guidelines: Admission for Medically Managed Detox: Requires at least one of the followin. CIWA greater than 12 2. Seizures within the past 24 hours 3. Delirium tremens within the past 24 hours 4. Hallucinations within the past 24 hours 5. Acute intervention needed for co occurring medical disorder 6. Acute intervention needed for co occurring psychiatric disorder 7. Severe withdrawal that cannot be handled at a lower level of care (continued vomiting, continued diarrhea, abnormal vital signs) requiring intravenous medication and/or fluids 8. Admission ROS BHS - HPI Chief Complaint: I am here for detox and rehab. Allergies/Adverse Reactions: Allergies Allergy/AdvReac Type Severity Reaction Status Date / Time No Known Allergies Allergy Verified 07/29/18 13:02 History of Present Illness: pt is a 58yr old male with a history of alcohol and cocaine dependence seeking detox for treatment. Exam Limitations: No Limitations - Ebola screening Have you traveled outside of the country in the last 21 days: No Have you had contact with anyone from an Ebola affected area: No Have you been sick,other than usual withdrawal symptoms: No Do you have a fever: No - Review of Systems Constitutional: Diaphoresis EENT: reports: Nose Congestion Respiratory: reports: Cough, Productive cough Cardiac: reports: No Symptoms Reported GI: reports: Diarrhea, Poor Fluid Intake, Indigestion : reports: Frequency (was on flomax 0.4mg) Musculoskeletal: reports: Joint Pain, Muscle Pain Integumentary: reports: Flushing, Sweating Neuro: reports: Headache, Tingling, Tremors Endocrine: reports: Flushing Hematology: reports: No Symptoms Reported Psychiatric: reports: Judgement Intact, Mood/Affect Appropiate, Orientated x3, Agitated, Anxious Other Systems: Reviewed and Negative Patient History - Patient Medical History Hx Anemia: No Hx Asthma: No Hx Chronic Obstructive Pulmonary Disease (COPD): No Hx Cancer: No Hx Cardiac Disorders: No Hx Congestive Heart Failure: No Hx Hypertension: Yes (norvasc) Hx Hypercholesterolemia: No Hx Pacemaker: No HX Cerebrovascular Accident: No Hx Seizures: No Hx Dementia: No Hx Diabetes: No Hx Gastrointestinal Disorders: Yes (hX OF ACID REFLUX.) Hx Liver Disease: No Hx Genitourinary Disorders: No Hx Sexually Transmitted Disorders: No Hx Renal Disease (ESRD): No Hx Thyroid Disease: No Hx Human Immunodeficiency Virus (HIV): No (NEGATIVE 2018) Hx Hepatitis C: No (negative) Hx Depression: No Hx Suicide Attempt: No (denies) Hx Bipolar Disorder: Yes (not taking medication) Hx Schizophrenia: No - Patient Surgical History Past Surgical History: Yes Hx Neurologic Surgery: No Hx Cataract Extraction: No Hx Cardiac Surgery: No Hx Lung Surgery: No Hx Breast Surgery: No Hx Breast Biopsy: No Hx Abdominal Surgery: Yes (RIGHT INGUINAL HERNIA REPAIR AT 24 YRS OLD) Hx Appendectomy: No Hx Cholecystectomy: Yes (LAP CHOLECYSTECTOMY IN 2000 IN [facility]) Hx Genitourinary Surgery: No Hx Section: No Hx Orthopedic Surgery: No Other Surgical History: MASTOIDECTOMY LEFT AT AGE 11,AND 34 WITH 50% HEARING LOSS Anesthesia Reaction: No - PPD History Previous Implant?: Yes Documented Results: Positive w/proof Implanted On Prior [facility] Admission?: No PPD to be Administered?: No - Reproductive History Patient is a Female of Child Bearing Age (11 -55 yrs old): No - Smoking Cessation Smoking history: Current every day smoker Have you smoked in the past 12 months: Yes Aproximately how many cigarettes per day: 10 Cigars Per Day: 0 Hx Chewing Tobacco Use: No Initiated information on smoking cessation: Yes 'Breaking Loose' booklet given: 07/29/18 - Substance & Tx. History Hx Alcohol Use: Yes Hx Substance Use: No Substance Use Type: Alcohol, Cocaine Hx Substance Use Treatment: Yes (last detox [facility] 2017) - Substances Abused Alcohol Route: Oral Frequency: Daily Amount used: 1 PINT VODKA Age of first use: 19 Date of Last Use: 07/28/18 Cocaine Route: Smoking Frequency: Daily Amount used: $70-100 Age of first use: 19 Date of Last Use: 07/28/18 Family Disease History - Family Disease History Family Disease History: Heart Disease: Father (SC-), Respiratory: Mother (ASTHMA/), Other: Mother, Brother (NO BROTHER) Admission Physical Exam BHS - Vital Signs Vital Signs: Vital Signs - 24 hr 07/29/18 12:40 Temperature 96.2 F L Pulse Rate 95 H Respiratory 20 Rate Blood Pressure 154/86 - Physical General Appearance: Yes: Appropriately Dressed, Obese, Tremorous, Irritable, Sweating, Anxious HEENTM: Yes: Hearing grossly Normal, Normal Voice, Nasal Congestion Respiratory: Yes: Lungs Clear, Normal Breath Sounds, No Respiratory Distress Neck: Yes: No masses,lesions,Nodules Breast: Yes: Within Normal Limits Cardiology: Yes: Regular Rhythm, Regular Rate, S1, S2 Abdominal: Yes: Normal Bowel Sounds Genitourinary: Yes: Within Normal Limits Back: Yes: Normal Inspection Musculoskeletal: Yes: Back pain, Muscle Pain Extremities: Yes: Normal Capillary Refill, Normal Inspection, Non-Tender, Tremors Neurological: Yes: Fully Oriented, Alert, Normal Response Integumentary: Yes: Normal Color, Diaphoresis Lymphatic: Yes: Within Normal Limits - Diagnostic (1) Alcohol dependence with uncomplicated withdrawal Current Visit: Yes Status: Chronic (2) Bipolar I, most recent episode mixed, severe Current Visit: Yes Status: Chronic (3) Drug-induced mood disorder Current Visit: No Status: Acute (4) Personality disorder Current Visit: Yes Status: Acute (5) Cocaine dependence Current Visit: Yes Status: Chronic (6) Essential hypertension Current Visit: Yes Status: Chronic (7) GERD (gastroesophageal reflux disease) Current Visit: Yes Status: Chronic Qualifiers: Esophagitis presence: without esophagitis Qualified Code(s): K21.9 - Gastro -esophageal reflux disease without esophagitis (8) HEARING LOSS LEFT EAR S/P MASTOIDECTOMY Current Visit: No Status: Chronic (9) Nicotine dependence Current Visit: Yes Status: Chronic (10) Paranoid schizophrenia Current Visit: No Status: Chronic (11) Syncope Current Visit: No Status: Chronic Cleared for Admission S - Detox or Rehab [facility] Level of Care: Medically Managed Detox Regimen/Protocol: Valium S Breath Alcohol Content Breath Alcohol Content: 0 Urine Drug Screen - Results Drug Screen Negative: No Urine Drug Screen Results: AIME-Cocaine
[2018-07-29] MEDS ORDERED: MAG HYDROX/AL HYDROX/SIMETH 30 ML UNIT-DOSE CUP PO PRN (13:57)
[2018-07-29] MEDS ORDERED: MAGNESIUM HYDROX 2400MG/30ML ORAL SUSPENSION 30 ML CUP PO PRN (13:57)
[2018-07-29] MEDS ORDERED: hydrOXYzine PAMOATE 50 MG CAPSULE (FP) PO PRN (13:57)
[2018-07-29] MEDS ORDERED: ACETAMINOPHEN 325 MG TABLET (FP) PO PRN (13:57)
[2018-07-29] MEDS ORDERED: NICOTINE POLACRILEX 4 MG GUM BUC PRN (13:57)
[2018-07-29] MEDS ORDERED: diazePAM 5 MG TABLET PO PRN (13:57)
[2018-07-29] MEDS ORDERED: P-EPHED 60MG/TRIPROLIDI 2.5MG TABLET PO PRN (13:57)
[2018-07-29] MEDS ORDERED: LOPERAMIDE HCL 2 MG CAPSULE PO PRN (13:57)
[2018-07-29] MEDS ORDERED: guaiFENesin/D-METHORPHAN HB 10 ML UNIT-DOSE CUPS PO PRN (13:57)
[2018-07-29] MEDS ORDERED: IBUPROFEN 400 MG TABLET (FP) PO PRN (13:57)
[2018-07-29] MEDS ORDERED: MAGNESIUM CITRATE 300 ML BOTTLE PO PRN (13:57)
[2018-07-29] MEDS ORDERED: diazePAM 5 MG TABLET PO ONE (15:33)
[2018-07-29] MEDS: amLODIPine BESYLATE 5 MG TABLET (FP) PO SCH (16:44)
[2018-07-29] MEDS: THIAMINE HCL 100 MG TABLET (FP) PO SCH (22:17)
[2018-07-29] MEDS: diazePAM 5 MG TABLET PO SCH (22:18)
[2018-07-30] MEDS: diazePAM 5 MG TABLET PO SCH ×3 (06:34→22:51)
--- NOTE | 2018-07-30 08:28 | CONSULT ---
[facility] Psychiatric Consult - Data Date of interview: 07/30/18 Admission source: [facility] Identifying data: This is a 58 years old obese male , single, no shidren, homeless, on PA support, with no psychiatric hospitalization history, with Bipolar Disorder history, reports history of deoendence with Alcohol, Cocaine and Nicotine, reports withdrawal symptoma and seeking detox. Substance Abuse History: Smoking history: Current every day smoker. Have you smoked in the past 12 months: Yes. Aproximately how many cigarettes per day: 10. Cigars Per Day: 0. Hx Chewing Tobacco Use: No. Initiated information on smoking cessation: Yes. 'Breaking Loose' booklet given: 07/29/18. - Substance & Tx. History. Hx Alcohol Use: Yes. Hx Substance Use: No. Substance Use Type : Alcohol, Cocaine. Hx Substance Use Treatment: Yes (last detox [facility] 2017) . - Substances Abused. Alcohol. Route: Oral. Frequency: Daily. Amount used: 1 PINT VODKA. Age of first use: 19. Date of Last Use: 07/28/18. Cocaine. Route: Smoking. Frequency: Daily. Amount used: $70-100. Age of first use: 19. Date of Last Use: 07/28/18 Medical History: Obesity, GERD, Syncope history, L. Hearing problem, HTN, Psychiatric History: Patient reports no psychiatric issues, as per chart patient suffers Paranoid Schizophrenis, Bipolar Disorder, Personality disorder. Patioent reports no medications taking prior to admission, denies suicidal, huber, icidal history,. denies psychiatric hospitalization history,. Patient minimizing past psychiatric history Physical/Sexual Abuse/Trauma History: Denies Additional Comment: Observation. Detox Unit Care Protocol Mental Status Exam - Mental Status Exam Alert and Oriented to: Person Cognitive Function: Fair Patient Appearance: Unkempt Mood: Apprehensive Affect: Constricted Patient Behavior: Cooperative Speech Pattern: Delayed Voice Loudness: Mildly Soft/Quiet Thought Process: Circumstantial Thought Disorder: Being Controlled Hallucinations: Denies Suicidal Ideation: Denies Homicidal Ideation: Denies Insight/Judgement: Fair Sleep: Difficulty falling asleep Appetite: Weight gain Muscle strength/Tone: Mild Hypotonicity Gait/Station: Shuffling Additional Comments: Observation. Detox Unit Care Protocol Psychiatric Findings - Problem List ([place] 1, 2,3) (1) Personality disorder Current Visit: Yes Status: Acute (2) Alcohol dependence with uncomplicated withdrawal Current Visit: Yes Status: Chronic (3) Bipolar I, most recent episode mixed, severe Current Visit: Yes Status: Chronic (4) Cocaine dependence Current Visit: Yes Status: Chronic (5) Essential hypertension Current Visit: Yes Status: Chronic (6) GERD (gastroesophageal reflux disease) Current Visit: Yes Status: Chronic Qualifiers: Esophagitis presence: without esophagitis Qualified Code(s): K21.9 - Gastro -esophageal reflux disease without esophagitis (7) Nicotine dependence Current Visit: Yes Status: Chronic (8) Drug-induced mood disorder Current Visit: No Status: Acute (9) HEARING LOSS LEFT EAR S/P MASTOIDECTOMY Current Visit: No Status: Chronic (10) Paranoid schizophrenia Current Visit: No Status: Chronic (11) Syncope Current Visit: No Status: Chronic (12) Schizophrenia Current Visit: Yes Status: Acute (13) Bipolar disorder Current Visit: Yes Status: Acute - Initial Treatment Plan Initial Treatment Plan: Observation. Detox Unit Care Protocol
[2018-07-30 10:09] LABS: HEMATOCRIT 42.6 % (35.4-49); HEMOGLOBIN 14.2 GM/dL (11.7-16.9); MCH 31.2 pg (25.7-33.7); MCHC 33.3 g/dl (32.0-35.9); MEAN CELL VOLUME 93.6 fl (80-96); MEAN PLT VOLUME 10.8 fl (7.5-11.1); PLATELET COUNT 225 K/MM3 (134-434); RBC 4.55 M/mm3 (4.00-5.60); RDW 13.6 % (11.9-15.9); WHITE BLOOD COUNT 10.5 K/mm3 (4.0-10.0)
--- NOTE | 2018-07-30 10:16 | PN ---
S CIWA - CIWA Score Nausea/Vomitin-No Nausea/No Vomiting Muscle Tremors: 4-Moderate,w/Arms Extend Anxiety: 3 Agitation: 3 Paroxysmal Sweats: 3 Orientation: 0-Oriented Tacttile Disturbances: 0-None Auditory Disturbances: 0-None Visual Disturbances: 0-None Headache: 0-None Present CIWA-Ar Total Score: 13 BHS Progress Note (SOAP) Subjective: sweats tired interrupted sleep agitation sore throat Objective: 07/30/18 10:15 Vital Signs Temperature 99.1 F 07/30/18 09:12 Pulse Rate 90 07/30/18 09:12 Respiratory Rate 07/30/18 09:12 Blood Pressure 156/80 07/30/18 09:12 O2 Sat by Pulse Oximetry (%) labs pending aaox3 ambulating no acute distress Assessment: 07/30/18 10:16 withdrawal sx back of throat slight red Plan: continue detox increase fluids labs pending z lincoln ordered throat lozenges prn lidocaine s/s
[2018-07-30] MEDS: TAMSULOSIN HCL 0.4 MG CAP PO SCH (10:28)
[2018-07-30] MEDS: PRENATAL VITAMINS W/ FOLIC ACID TABLET (FP) PO SCH (10:28)
[2018-07-30] MEDS: NICOTINE 21 MG/24 HOURS TOPICAL PATCH TD SCH (10:28)
[2018-07-30] MEDS: amLODIPine BESYLATE 5 MG TABLET (FP) PO SCH (10:28)
[2018-07-30 10:39] LABS: ALBUMIN 3.7 g/dl (3.4-5.0); ALK PHOS 117 U/L (45-117); ANION GAP 8 MMOL/L (8-16); BILIRUBIN,TOTAL 0.2 mg/dL (0.2-1); BLOOD UREA NITROGEN 24 mg/dL (7-18); CALCIUM 8.4 mg/dL (8.5-10.1); CHLORIDE 108 mmol/L (98-107); CO2 26 mmol/L (21-32); CREATININE 1.1 mg/dL (0.55-1.3); GLUCOSE,RANDOM 120 mg/dL (74-106); SGOT/AST 19 U/L (15-37); SGPT/ALT 27 U/L (13-61); SODIUM 142 mmol/L (136-145)
[2018-07-30] MEDS ORDERED: AZITHROMYCIN 250 MG TABLET PO ONE (10:45)
[2018-07-30] MEDS: THIAMINE HCL 100 MG TABLET (FP) PO SCH (22:51)
[2018-07-30] MEDS: MENTHOL/PHENOL 1 EACH UD MM PRN (22:52)
[2018-07-30] MEDS: MELATONIN 5 MG TABLETS PO PRN (23:47)
[2018-07-31] MEDS: AZITHROMYCIN 250 MG TABLET PO SCH (10:47)
[2018-07-31] MEDS: diazePAM 5 MG TABLET PO SCH ×2 (10:47→22:11)
[2018-07-31] MEDS: PRENATAL VITAMINS W/ FOLIC ACID TABLET (FP) PO SCH (10:47)
[2018-07-31] MEDS: amLODIPine BESYLATE 5 MG TABLET (FP) PO SCH (10:47)
[2018-07-31] MEDS: TAMSULOSIN HCL 0.4 MG CAP PO SCH (10:47)
[2018-07-31] MEDS: NICOTINE 21 MG/24 HOURS TOPICAL PATCH TD SCH (10:48)
[2018-07-31] MEDS: LIDOCAINE VISCOUS 2% ORAL/TOP 20 ML UNIT-DOSE CUP MM PRN ×2 (10:54→22:14)
[2018-07-31] MEDS: MENTHOL/PHENOL 1 EACH UD MM PRN ×2 (10:57→14:59)
[2018-07-31] MEDS: NAPHAZOLINE/PHENIRAMINE OPHTHALMIC 15 ML BOTTLE OU PRN ×2 (14:58→22:11)
[2018-07-31] MEDS: TOLNAFTATE 1% CREAM 15 GM TUBE TP SCH (22:11)
[2018-07-31] MEDS: THIAMINE HCL 100 MG TABLET (FP) PO SCH (22:11)
[2018-07-31] MEDS: MELATONIN 5 MG TABLETS PO PRN (22:11)
[2018-08-01] MEDS: amLODIPine BESYLATE 5 MG TABLET (FP) PO SCH (10:21)
[2018-08-01] MEDS: TAMSULOSIN HCL 0.4 MG CAP PO SCH (10:21)
[2018-08-01] MEDS: NICOTINE 21 MG/24 HOURS TOPICAL PATCH TD SCH (10:21)
[2018-08-01] MEDS: diazePAM 5 MG TABLET PO SCH ×2 (10:21→22:35)
[2018-08-01] MEDS: AZITHROMYCIN 250 MG TABLET PO SCH (10:21)
[2018-08-01] MEDS: PRENATAL VITAMINS W/ FOLIC ACID TABLET (FP) PO SCH (10:21)
[2018-08-01] MEDS: TOLNAFTATE 1% CREAM 15 GM TUBE TP SCH ×2 (10:23→22:35)
--- NOTE | 2018-08-01 13:23 | PN ---
S CIWA - CIWA Score Nausea/Vomitin Muscle Tremors: 2 Anxiety: 2 Agitation: 2 Paroxysmal Sweats: 2 Orientation: 0-Oriented Tacttile Disturbances: 1-Very Mild Itch/Numbness Auditory Disturbances: 1-Very Mild Visual Disturbances: 0-None Headache: 1-Very Mild CIWA-Ar Total Score: 13 S Progress Note (SOAP) Subjective: Shakes, sweats and irritability Objective: 08/01/18 13:22 Vital Signs 08/01/18 08/01/18 06:00 09:46 Temperature 97.7 F 97 F L Pulse Rate 84 86 Respiratory 20 16 Rate Blood Pressure 153/85 160/82 Laboratory Last Values WBC 10.5 K/mm3 (4.0-10.0) H 07/30/18 06:00 RBC 4.55 M/mm3 (4.00-5.60) 07/30/18 06:00 Hgb 14.2 GM/dL (11.7-16.9) 07/30/18 06:00 Hct 42.6 % (35.4-49) 07/30/18 06:00 MCV 93.6 fl (80-96) 07/30/18 06:00 MCH 31.2 pg (25.7-33.7) 07/30/18 06:00 MCHC 33.3 g/dl (32.0-35.9) 07/30/18 06:00 RDW 13.6 % (11.9-15.9) 07/30/18 06:00 Plt Count 225 K/MM3 (134-434) D 07/30/18 06:00 MPV 10.8 fl (7.5-11.1) D 07/30/18 06:00 Sodium 142 mmol/L (136-145) 07/30/18 06:00 Potassium 4.0 mmol/L (3.5-5.1) 07/30/18 06:00 Chloride 108 mmol/L (98-107) H 07/30/18 06:00 Carbon Dioxide 26 mmol/L (21-32) 07/30/18 06:00 Anion Gap 8 MMOL/L (8-16) 07/30/18 06:00 BUN 24 mg/dL (7-18) H 07/30/18 06:00 Creatinine 1.1 mg/dL (0.55-1.3) 07/30/18 06:00 Creat Clearance w eGFR > 60 (>60) 07/30/18 06:00 Random Glucose 120 mg/dL (74-106) H 07/30/18 06:00 Calcium 8.4 mg/dL (8.5-10.1) L 07/30/18 06:00 Total Bilirubin 0.2 mg/dL (0.2-1) 07/30/18 06:00 AST 19 U/L (15-37) 07/30/18 06:00 ALT 27 U/L (13-61) 07/30/18 06:00 Alkaline Phosphatase 117 U/L (45-117) 07/30/18 06:00 Total Protein 7.0 g/dl (6.4-8.2) 07/30/18 06:00 Albumin 3.7 g/dl (3.4-5.0) 07/30/18 06:00 RPR Titer Nonreactive (NONREACTIVE) 07/30/18 06:00 Labs noted Assessment: 08/01/18 13:23 Withdrawal sx Plan: Continue detox
[2018-08-01] MEDS: THIAMINE HCL 100 MG TABLET (FP) PO SCH (22:35)
[2018-08-01] MEDS: LIDOCAINE VISCOUS 2% ORAL/TOP 20 ML UNIT-DOSE CUP MM PRN (22:42)
[2018-08-01] MEDS: NAPHAZOLINE/PHENIRAMINE OPHTHALMIC 15 ML BOTTLE OU PRN (22:42)
[2018-08-02 06:17] VITALS: BP 142/84; PULSE 86; TEMP 97.7
[2018-08-02] MEDS: NICOTINE 21 MG/24 HOURS TOPICAL PATCH TD SCH (09:33)
[2018-08-02] MEDS: AZITHROMYCIN 250 MG TABLET PO SCH (09:36)
[2018-08-02] MEDS: PRENATAL VITAMINS W/ FOLIC ACID TABLET (FP) PO SCH (09:36)
[2018-08-02] MEDS: TAMSULOSIN HCL 0.4 MG CAP PO SCH (09:36)
[2018-08-02] MEDS: TOLNAFTATE 1% CREAM 15 GM TUBE TP SCH (09:36)
[2018-08-02] MEDS: amLODIPine BESYLATE 5 MG TABLET (FP) PO SCH (09:36)
[2018-08-02] MEDS ORDERED: diazePAM 5 MG TABLET PO SCH (10:00)
--- NOTE | 2018-08-02 16:23 | DS ---
[facility] Detox Discharge Summary Admission Date: 07/29/18 Discharge Date: 08/02/18 - History Present History: Alcohol Dependence, Cocaine Dependence Additional Comments: Patient completed detox successfully, discharged safely. Follow up with PCP within 1-2 weeks. Pertinent Past History: HTN GERD Left hearing loss - Physical Exam Results Vital Signs: Vital Signs Temperature 97.7 F 08/02/18 06:00 Pulse Rate 86 08/02/18 06:00 Respiratory Rate 20 08/02/18 06:00 Blood Pressure 142/84 08/02/18 06:00 O2 Sat by Pulse Oximetry (%) Pertinent Admission Physical Exam Findings: Withdrawal symptoms Laboratory Tests 07/30/18 07/30/18 07/30/18 06:00 06:00 06:00 WBC 10.5 H RBC 4.55 Hgb 14.2 Hct 42.6 MCV 93.6 MCH 31.2 MCHC 33.3 RDW 13.6 Plt Count 225 D MPV 10.8 D Sodium 142 Potassium 4.0 Chloride 108 H Carbon Dioxide 26 Anion Gap 8 BUN 24 H Creatinine 1.1 Creat Clearance w eGFR > 60 Random Glucose 120 H Calcium 8.4 L Total Bilirubin 0.2 AST 19 ALT 27 Alkaline Phosphatase 117 Total Protein 7.0 Albumin 3.7 RPR Titer Nonreactive Labs reviewed: bun 24 (encouraged PO water hydration), glucose 120 (could be r/ t withdrawal); f/u with PCP within 1-2 weeks - Treatment Hospital Course: Detox Protocol Followed, Detoxed Safely, Responded well, Discharged Condition Good - Medication Discharge Medications: Ambulatory Orders Amlodipine Besylate [Norvasc -] 5 mg PO DAILY 30 Days #30 tablet 08/22/17 - Diagnosis (1) Depression Status: Chronic (2) Bipolar disorder Status: Chronic (3) Alcohol dependence with uncomplicated withdrawal Status: Acute (4) Cocaine dependence Status: Chronic (5) Essential hypertension Status: Chronic (6) GERD (gastroesophageal reflux disease) Status: Chronic Qualifiers: Esophagitis presence: without esophagitis Qualified Code(s): K21.9 - Gastro -esophageal reflux disease without esophagitis (7) HEARING LOSS LEFT EAR S/P MASTOIDECTOMY Status: Chronic (8) Nicotine dependence Status: Chronic (9) Paranoid schizophrenia Status: Chronic (10) Azotemia Status: Acute (11) Hyperglycemia Status: Acute - AMA Did Patient Leave Against Medical Advice: No (F/U with PCP within 1-2 weeks)
== END 2018-08-02 09:45 | disposition home or self-care (01) | DRG 774 ==
LOC: YASAS 12:21 → Y6N 15:17
PROVIDERS: ADMIT Neuromusculoskeletal Medicine & OMM; ATTEND Neuromusculoskeletal Medicine & OMM
PROC: HZ2ZZZZ Detoxification Services for Substance Abuse Treatment (ICD-10-PCS; principal; 2018-07-29)
DX: F10.230 Alcohol dependence with withdrawal, uncomplicated (principal); F14.20 Cocaine dependence, uncomplicated; F17.210 Nicotine dependence, cigarettes, uncomplicated; F31.63 Bipolar disorder, current episode mixed, severe, without psychotic features; F60.9 Personality disorder, unspecified; F32.9 Major depressive disorder, single episode, unspecified; F19.24 Other psychoactive substance dependence with psychoactive substance-induced mood disorder; F20.0 Paranoid schizophrenia; I10 Essential (primary) hypertension; K21.9 Gastro-esophageal reflux disease without esophagitis; H91.92 Unspecified hearing loss, left ear; R73.9 Hyperglycemia, unspecified; R79.89 Other specified abnormal findings of blood chemistry
CPT/HCPCS: 36415; 80053; 85027; 86593